=== PATIENT | male | born 1995 | race Caucasian/White ===

== ENCOUNTER 2019-04-19 10:29 | Emergency (ER) | payer BC, OTHER ==
[~2019-04-19] VITALS: Ht 180.3 cm; Wt 87.1 kg
[2019-04-19 10:41] VITALS: Ht 180.3 cm; Wt 87.1 kg
[2019-04-19 14:08] VITALS: BP 128/75
== END 2019-04-19 14:08 | disposition home or self-care (01) ==
LOC: ED 10:29
DX: K12.2 Cellulitis and abscess of mouth (principal); J45.909 Unspecified asthma, uncomplicated; Z88.2 Allergy status to sulfonamides
CPT/HCPCS: J0171; J0561; J1100; J1200; J2930; J3490